=== PATIENT | male | born 1985 | race Two or more races ===

== ENCOUNTER 2024-07-24 19:38 | Emergency (ER) | payer MEDICAID, OTHER ==
[~2024-07-24] VITALS: Ht 170.2 cm; Wt 55.0 kg
[2024-07-24 23:50] VITALS: BP 149/98; TEMP 98.4
[2024-07-24 23:53] VITALS: PULSE 85; RESP 20; O2SAT 100
[2024-07-25] MEDS: CYCLOBENZAPRINE HCL 10 MG TAB PO ONE (00:15)
== END 2024-07-25 00:48 | disposition home or self-care (01) ==
LOC: EDBD 19:38 → ER 19:38
DX: M62.838 Other muscle spasm (principal); F19.10 Other psychoactive substance abuse, uncomplicated

== ENCOUNTER 2024-07-27 11:58 | Emergency (ER) | payer MEDICAID ==
[~2024-07-27] VITALS: Ht 172.7 cm; Wt 68.2 kg
[2024-07-27 12:30] VITALS: BP 135/94; TEMP 98; O2SAT 96
[2024-07-27 12:43] LABS: Amphetamine Screen, Urine Pos (NEGATIVE); Barbiturate Scree,Urine Neg (NEGATIVE); Benzodiazephine Screen, Urine Neg (NEGATIVE); Cocaine Screen, Urine Neg (NEGATIVE)
[2024-07-27 12:44] LABS: Cannabinoid Screen, Urine Neg (NEGATIVE); Opiate Scree,Urine Neg (NEGATIVE); Phencyclidine Screen, Urine Neg (NEGATIVE)
[2024-07-27 14:00] VITALS: PULSE 98; RESP 16
== END 2024-07-27 19:07 | disposition left against medical advice (07) ==
LOC: EDUNIT# 11:58 → ER 11:58 → EDBD 11:58 → ER 19:07
DX: F19.10 Other psychoactive substance abuse, uncomplicated (principal); F17.210 Nicotine dependence, cigarettes, uncomplicated; F15.90 Other stimulant use, unspecified, uncomplicated; Z79.899 Other long term (current) drug therapy
CPT/HCPCS: 36415; 51701; 80307; 80320